=== PATIENT | male | born 1955 | race Caucasian/White ===

== ENCOUNTER 2022-07-16 19:25 | Emergency (ER) | payer MEDICARE, SELFPAY ==
[2022-07-16 19:27] VITALS: BP 134/60; PULSE 74; RESP 16; TEMP 36.4; O2SAT 100; BMI 28.0
--- NOTE | 2022-07-16 21:23 | NUR.TO.PHY ---
THIS SEC CALLED ONCROBB FOR DR. KNOX THEY CALLED OUT FOR HIM.
--- NOTE | 2022-07-16 22:39 | EDS_ITS ---
HPI History of Present Illness Chief Complaint: Lower Extremity Injury Informant: patient and spouse/S.O. Narrative Narrative: Patient presents here for medication for DVT. Patient evidently saw his primary physician up in [place] today. Blood work and an outpatient ultrasound was ordered. The ultrasound was called back to the primary physician that it was positive for DVT. The physician contacted the patient and told him to go to an emergency department to initiate treatment. They do not know the details of the ultrasound. They do not know the results of the blood work. Patient does states that he had a DVT in the right leg years ago but he thinks it was about 20 or 25 years. He states he has had about a month of leg pain and swelling. He states he has had a little bit more discomfort in the left leg although the clot was seen in the right. He has no chest pain or dyspnea. He takes baby aspirin only as anticoagulant. [facility] Medical History CHF (congestive heart failure) Depression Frequent falls Neuropathy Parkinsons Home Medications alprazolam 0.25 mg tablet 0.25 mg PO DAILY 07/16/22 [History Last Taken Unknown] apixaban 5 mg tablet (Eliquis) 5 mg PO BID #74 tabs 07/16/22 [Rx Last Taken Unknown] baclofen 10 mg tablet 10 mg PO TID 07/16/22 [History Last Taken Unknown] bisoprolol fumarate 5 mg tablet 5 mg PO DAILY 07/16/22 [History Last Taken Unknown] carbidopa 25 mg-levodopa 100 mg tablet 1 tab PO QHS 07/16/22 [History Last Taken Unknown] fluoxetine 20 mg capsule 20 mg PO TID 07/16/22 [History Last Taken Unknown] furosemide 40 mg tablet 60 mg PO DAILY 07/16/22 [History Last Taken Unknown] gabapentin 300 mg capsule 600 mg PO QHS 07/16/22 [History Last Taken Unknown] isosorbide mononitrate 30 mg tablet,extended release 24 hr 30 mg PO DAILY 07/16/22 [History Last Taken Unknown] losartan 25 mg tablet 25 mg PO DAILY 07/16/22 [History Last Taken Unknown] omeprazole 40 mg capsule,delayed release 40 mg PO DAILY 07/16/22 [History Last Taken Unknown] oxybutynin chloride 5 mg tablet 5 mg PO TID 07/16/22 [History Last Taken Unknown] ropinirole 2 mg tablet 2 mg PO TID 07/16/22 [History Last Taken Unknown] simvastatin 40 mg tablet 40 mg PO QHS 07/16/22 [History Last Taken Unknown] trazodone 100 mg tablet 200 mg PO QHS 07/16/22 [History Last Taken Unknown] Allergy/AdvReac Type Severity Reaction Status Date / Time No Known Allergies Allergy Verified 07/16/22 19:27 Social History Smoking Status: Never smoker ROS ROS ED Constitutional Constitutional ED: Denies chills or fever(s) ENT ENT ED: Denies sore throat Cardiovascular Cardiovascular: Denies chest pain, palpitations or racing heartbeat Respiratory/Chest Respiratory/Chest: Denies cough or dyspnea Gastrointestinal Gastrointestinal: Denies nausea or vomiting Musculoskeletal Musculoskeletal: Reports other Details: Sore lower leg see history of present illness peer Integumentary Denies rash Neurologic Neurologic: Denies paresthesias or weakness Hematologic/Lymphatic Hematologic/Lymphatic: Denies easy bleeding or easy bruising Allergic/Immunologic Allergic/Immunologic ED: Denies urticaria EXAM Physical Exam Const Vital Signs: 07/16/22 19:27 07/16/22 23:06 Temperature 97.5 F L Temperature Source Temporal Pulse Rate 74 56 L Respiratory Rate 16 16 Blood Pressure 134/60 H 103/60 Blood Pressure Mean 84 74 Pulse Ox 100 95 Oxygen Delivery Method Room Air Room Air Positive well nourished and well developed General Appearance ED: well developed and NAD HEENT Reports moist mucous membranes Chest Wall inspection of chest normal Resp normal respiratory effort and clear to auscultation bilaterally Auscultation: Negative for rales, rhonchi, wheezes or diminished lung sounds Cardio regular rate and regular rhythm GI non-tender and non-distended Palpation: soft Back/Spine no CVA tenderness Extremity Extremity Narrative: Patient does have some edema both legs. Seems to be a little bit more on the left actually than the right. Normal capillary refill. No sign of poor blood flow. Pulse okay. No cyanosis Neuro oriented x3 Skin no wounds MDM MDM MDM Narrative Medical decision making narrative: We tried to access this patient's results and we could not get them on a system. We contacted [facility]. They stated that this was an outpatient study so they could not get these results or send them to us. Therefore, I do not know if he had an acute DVT or what they saw was his prior DVT. I do not know if this was below the knee or above the knee. I do not know if it was very high and he might need admission. I explained to the patient that there is quite a bit of information and details I need in order to treat him appropriately. We then tried to contact his primary physician, Dr. Phelps. We were not able to get hold of him. At that point patient had been here almost 3-1/2 hours trying to get this information. I explained that we will give him a shot of Lovenox which will protect him for the night. But I am not comfortable writing for a month of medication. He will contact his physician in the morning. If they can send or call in the results we know exactly what we are treating we can assist with his care. Just before the patient left, his primary physician called back. He verified he does have an acute DVT. He does require Eliquis treatment. It was a little bit above and below the knee it sounds like. But it did not go through the inguinal ligament the best I can tell. The patient's blood work is not back so we do not know what dose of Eliquis to start. At this point we then sent off blood work. He was mildly anemic but has a history of this. Potassium was minimally low. But his renal function was normal. At this point we can get him on Eliquis 5 mg twice a day. 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 This is normally a small amount of bleeding. I do not think this is a contraindication to anticoagulation unless he has further bleeding that is difficult to manage. He is not having the bleeding now. Lab Data Labs: Laboratory Results - last 24 hr 07/16/22 07/16/22 22:00 22:00 WBC 9.1 RBC 3.98 L Hgb 10.4 L Hct 33.9 L MCV 85.2 MCH 26.1 L MCHC 30.7 L RDW Std Deviation 50.6 H RDW Coeff of Ann 16.3 H Plt Count 417 MPV 8.8 Immature Gran % (Auto) 0.400 Neut % (Auto) 80.0 H Lymph % (Auto) 12.2 L [place] % (Auto) 6.3 Eos % (Auto) 0.7 Baso % (Auto) 0.4 Absolute Neuts (auto) 7.2 Absolute Lymphs (auto) 1.10 Nucleated RBC % 0 Sodium 137 Potassium 3.2 L Chloride 96 L Carbon Dioxide 38.0 H Anion Gap 3 L BUN 21 H Creatinine 1.12 Estim Creat Clear Calc 67.23 Est GFR (MDRD) Af Amer 84 Est GFR (MDRD) Non-Af 69 BUN/Creatinine Ratio 18.8 Glucose 108 H Calcium 9.0 Discharge Plan Triage Chief Complaint: Lower Extremity Injury ED Provider: Vinicius Whipple Dx/Rx/DC Orders Clinical Impression: History of DVT of lower extremity Instructions: ED Deep Vein Thrombosis (DVT) Prescriptions: New Eliquis 5 mg tablet 5 mg PO BID Qty: 74 0RF Rx Instructions: 10 mg twice a day for the first week. Then 5 mg twice a day. No Action furosemide 40 mg Tablet 60 mg PO DAILY isosorbide mononitrate 30 mg Tablet Extended Release 24 Hr 30 mg PO DAILY omeprazole 40 mg Capsule,Delayed Release(Dr/Ec) 40 mg PO DAILY simvastatin 40 mg Tablet 40 mg PO QHS bisoprolol fumarate 5 mg Tablet 5 mg PO DAILY alprazolam 0.25 mg Tablet 0.25 mg PO DAILY trazodone 100 mg Tablet 200 mg PO QHS baclofen 10 mg Tablet 10 mg PO TID ropinirole 2 mg Tablet 2 mg PO TID losartan 25 mg Tablet 25 mg PO DAILY gabapentin 300 mg Capsule 600 mg PO QHS carbidopa-levodopa 25-100 mg Tablet 1 tab PO QHS oxybutynin chloride 5 mg Tablet 5 mg PO TID fluoxetine 20 mg Capsule 20 mg PO TID Primary Care Provider: Care Physician,No Primary Referrals: Care Physician,No Primary [Primary Care Provider] - Activity Restrictions/Additional Instructions: Contact Dr. Phelps tomorrow for follow-up. Disposition Disposition: Home, Self Care
[2022-07-16 23:06] VITALS: BP 103/60; PULSE 56; RESP 16; O2SAT 95
[2022-07-16 23:07] LABS: Absolute Neutrophil Count 7.2 X10^3/uL (2.0-7.7); Basophil# 0.04 X10^3/uL; Basophil% 0.4 % (0-1); Eosinophil# 0.06 X10^3/uL; Eosinophils% 0.7 % (0-5); Hematocrit 33.9 % (40-54); Hemoglobin 10.4 g/dL (13.0-16.5); Lymphocyte % 12.2 % (19-41); Mean Corp Hgb Conc 30.7 g/dL (32-36); Mean Corpuscular Hgb 26.1 pg (27.0-32.0); Mean Corpuscular Volume 85.2 fL (80-94); Mean Platelet Vol. 8.8 fl (6.2-12.0); Monocyte# 0.57 X10^3/uL; Monocyte% 6.3 % (0-10); NRBC Flagged by Analyzer 0 % (0-5); Neutrophil # 7.24 X10^3/uL (2.7-7.7); Platelet Count 417 K/mm3 (150-450); RBC Distribution Width CV 16.3 % (11.6-14.6); RBC Distribution Width SD 50.6 fl (35.1-43.9); Red Blood Count 3.98 M/mm3 (4.6-6.2); White Blood Count 9.1 K/mm3 (4.4-11.0)
[2022-07-16 23:20] LABS: Anion Gap 3 (5-15); BUN 21 mg/dL (7-18); BUN/Creat Ratio 18.8 RATIO (10-20); Chloride 96 mmol/L (98-107); Creatinine, Serum 1.12 mg/dL (0.70-1.30); EST Glomerular Filtration Rate 69 mL/min (>60); Est Glom Filt Rate - Afr Amer 84 mL/min (>60); Estimated Creatinine Clearance 67.23 ml/min; Glucose 108 mg/dL (74-106); Potassium 3.2 mmol/L (3.5-5.1); Sodium Level 137 mmol/L (136-145)
[2022-07-16] MEDS: APIXABAN 5 MG TABLET PO (23:32)
== END 2022-07-16 23:49 | disposition home or self-care (01) ==
PROVIDERS: Emergency Provider Emergency Medicine; Visit Provider Emergency Medicine
DX: Z86.718 Personal history of other venous thrombosis and embolism (principal); I50.9 Heart failure, unspecified; R60.0 Localized edema; Z92.3 Personal history of irradiation; Z79.899 Other long term (current) drug therapy
CPT/HCPCS: 80048; 85025; 99283; A4216